=== PATIENT | female | born 2000 | race Caucasian/White ===

== ENCOUNTER 2022-05-29 05:49 | Emergency (ER) | payer OTHER ==
[~2022-05-29] VITALS: Ht 152.4 cm; Wt 42.6 kg
[2022-05-29 05:53] VITALS: BP 130/92
--- NOTE | 2022-05-29 06:00 | NUR ---
PT TO 12
--- NOTE | 2022-05-29 06:21 | NUR ---
Dr. Fernández examining patient.
[2022-05-29] MEDS ORDERED: DICYCLOMINE HCL LIQUID 20 MG, ALUMINUM HYD/MAG/SIMETHICONE 30 ML, LIDOCAINE VISCOUS 2% ... PO ONE ×3 (06:25)
[2022-05-29] MEDS ORDERED: ALUMINUM HYD/MAG/SIMETHICONE 30 ML UDC ONE (06:27)
[2022-05-29] MEDS ORDERED: DICYCLOMINE HCL LIQUID 10 MG/5 ML UDC ONE (06:27)
[2022-05-29 06:53] LABS: BASOPHILS % (AUTO) 0.4 % (0.0-2.0); EOSINOPHILS # (AUTO) 0.1 K/uL (0-0.4); EOSINOPHILS % (AUTO) 1.6 % (0.0-4.0); HEMATOCRIT 38.4 % (36-48); LYMPHOCYTES # (AUTO) 2.5 K/uL (2.5-16.5); LYMPHOCYTES % (AUTO) 43.4 % (20.5-51.1); MEAN CORPUSCULAR HEMOGLOBIN 31 pg (27-31); MEAN CORPUSCULAR HGB CONC 34 g/dL (33-37); MEAN CORPUSCULAR VOLUME 92.5 fL (80-94); MONOCYTES # (AUTO) 0.4 K/uL (0.8-1.0); NEUTROPHILS # (AUTO) 2.7 K/uL (1.8-7.7); NEUTROPHILS % (AUTO) 47.6 % (42.2-75.2); PLATELET COUNT (AUTO) 232 K/uL (140-450); RED BLOOD CELL COUNT(AUTO) 4.15 MIL/uL (4.20-5.40); WHITE BLOOD COUNT (AUTO) 5.7 K/uL (4.8-10.8)
[2022-05-29] MEDS ORDERED: SUCR1TAB6 PO (07:09)
[2022-05-29] MEDS ORDERED: FAMO-90 PO (07:09)
[2022-05-29] MEDS ORDERED: ONDA-188 PO (07:09)
[2022-05-29] MEDS ORDERED: SIME125T38 PO (07:09)
[2022-05-29 07:10] LABS: ALBUMIN 3.9 g/dL (3.4-5.0); ANION GAP 11.3 (8-16); CARBON DIOXIDE 27.4 mmol/L (21-32); CREATININE 0.8 mg/dL (0.6-1.3); POTASSIUM 3.7 mmol/L (3.5-5.1); TOTAL BILIRUBIN 0.5 mg/dL (0.0-1.0)
--- NOTE | 2022-05-29 07:30 | NUR ---
PT C/O EPIGASTRIC PAIN SINCE YESTERDAY, MEDICATED PROIR TO MY SHIFT AND STATES RELIEF.
--- NOTE | 2022-05-29 08:03 | NUR ---
Patient discharged with v/s stable. Written and verbal after care instructions given and explained. Patient alert, oriented and verbalized understanding of instructions. Ambulatory with steady gait. All questions addressed prior to discharge. ID band removed. Patient advised to follow up with PMD. Rx of PEPCID, ZOFRAN, MYLANTA, SUCRALFATE given. Patient educated on indication of medication including possible reaction and side effects. Opportunity to ask questions provided and answered.
--- NOTE | 2022-05-29 08:06 | NUR ---
The patient's care was reviewed and supervised by ED Agency Nurse 8, RN, RN.
== END 2022-05-29 08:06 | disposition home or self-care (01) ==
LOC: MED 05:49
DX: K29.70 Gastritis, unspecified, without bleeding (principal); Z79.899 Other long term (current) drug therapy
CPT/HCPCS: 36415; 80053; 81025; 83690; 85025; 99283